=== PATIENT | male | born 1975 | race Caucasian/White ===

== ENCOUNTER 2025-01-09 06:23 | Day surgery (SDC) | payer OTHER, SELFPAY | END 2025-01-09 15:10 | disposition home or self-care (01) | LOC: GI 06:23 | PROVIDERS: ATTENDING PHYSICIAN Internal Medicine Gastroenterology | DX: Z12.11 Encounter for screening for malignant neoplasm of colon (principal); K64.8 Other hemorrhoids; K57.30 Diverticulosis of large intestine without perforation or abscess without bleeding; D12.0 Benign neoplasm of cecum; D12.3 Benign neoplasm of transverse colon | CPT/HCPCS: 45385; 88305 ==

== ENCOUNTER → 2025-05-30 14:35 | Outpatient (REF) | payer OTHER, SELFPAY | LOC: RAD 14:35 | PROVIDERS: ATTENDING PHYSICIAN Physician Assistant | DX: M89.8X2 Other specified disorders of bone, upper arm (principal) | CPT/HCPCS: 73060 ==